=== PATIENT | female | born 1965 | race Caucasian/White ===

== ENCOUNTER 2019-06-22 15:59 | Emergency (ER) | payer OTHER ==
--- NOTE | 2019-06-22 16:43 | PDOC ---
Rapid Medical Evaluation Time Seen by Provider: 06/22/19 16:37 Medical Evaluation: Allergies Allergy/AdvReac Type Severity Reaction Status Date / Time No Known Allergies Allergy Verified 12/02/14 07:17 06/22/19 16:37 This patient had brief medical evaluation in triage cc: near syncope HPI: patient reports feeling lightheaded today while at work with dizziness. Denies chest discomfort or shortness of breath PE: appears well lungs clear bilaterally heart s1s2 Orders: ekg This patient will proceed to main ed for further evaluation Discharge Disposition - Diagnosis Near syncope - Referrals - Patient Instructions - Post Discharge Activity
[2019-06-22 16:44] VITALS: BP 141/82; PULSE 77; TEMP 97.2; BMI 34.2
--- NOTE | 2019-06-22 17:11 | PDOC ---
History of Present Illness - General Chief Complaint: Lightheaded Stated Complaint: DIZZY Time Seen by Provider: 06/22/19 16:37 History Source: Patient - History of Present Illness Initial Comments: Ms. Bryan is a 54 y/o woman w/hx HTN p/w syncopal episode three hours ago while at work. She reports being in her usual state of health when she became acutely lightheaded when turning around. She reports stumbling into a nearby chair and losing consciousness briefly. The event was witnessed by coworkers, and she awoke moments later to her normal mental status. She reports nausea while en route to [facility]. She denies prior similar episodes, and denies any prodromal palpitations, weakness, nausea, vomiting, chest pain, trouble breathing, or incontinence during the event. She feels well at this time. Past History - Past Medical History Allergies/Adverse Reactions: Allergies Allergy/AdvReac Type Severity Reaction Status Date / Time No Known Allergies Allergy Verified 06/22/19 16:39 Home Medications: Ambulatory Orders Lisinopril/Hydrochlorothiazide [Lisinopril-Hctz 20-25 mg Tab] 1 each PO BID 06/22/19 Meloxicam 15 mg PO HS PRN 06/22/19 Kidney Stones: Yes - Immunization History Immunization Up to Date: Yes - Psycho Social/Smoking Cessation Hx Smoking Status: No Smoking History: Never smoked Number of Cigarettes Smoked Daily: 0 Information on smoking cessation initiated: No Hx Alcohol Use: No Drug/Substance Use Hx: No Substance Use Type: None Review of Systems - Review of Systems Able to Perform ROS?: Yes Comments:: GENERAL/CONSTITUTIONAL: No fever or chills. No weakness. HEAD, EYES, EARS, NOSE AND THROAT: No change in vision. No ear pain or discharge. No sore throat. CARDIOVASCULAR: No chest pain or shortness of breath RESPIRATORY: No cough, wheezing, or hemoptysis. GASTROINTESTINAL: Nausea. No vomiting, diarrhea or constipation. GENITOURINARY: No dysuria, frequency, or change in urination. MUSCULOSKELETAL: No joint or muscle swelling or pain. No neck or back pain. SKIN: No rash NEUROLOGIC: LOC. No headache, vertigo, or change in strength/sensation. ENDOCRINE: No increased thirst. No abnormal weight change HEMATOLOGIC/LYMPHATIC: No anemia, easy bleeding, or history of blood clots. ALLERGIC/IMMUNOLOGIC: No hives or skin allergy. *Physical Exam - Vital Signs Last Vital Signs Temp Pulse Resp BP Pulse Ox 97.2 F L 77 17 141/82 97 06/22/19 16:37 06/22/19 16:37 06/22/19 16:37 06/22/19 16:37 06/22/19 16:37 - Physical Exam GENERAL: Awake, alert, and fully oriented, in no acute distress HEAD: No signs of trauma, normocephalic, atraumatic EYES: PERRLA, EOMI, sclera anicteric, conjunctiva clear ENT: Auricles normal inspection, hearing grossly normal, nares patent, oropharynx clear without exudates. Moist mucosa NECK: Normal ROM, supple, no lymphadenopathy, JVD, or masses LUNGS: No distress, speaks full sentences, clear to auscultation bilaterally HEART: Regular rate and rhythm, normal S1 and S2, no murmurs, rubs or gallops, peripheral pulses normal and equal bilaterally. ABDOMEN: Soft, nontender, normoactive bowel sounds. No guarding, no rebound. No masses EXTREMITIES : Normal inspection, Normal range of motion, no edema. No clubbing or cyanosis NEUROLOGICAL: Cranial nerves II through XII grossly intact. Normal speech, normal gait, no focal sensorimotor deficits SKIN: Warm, Dry, normal turgor, no rashes or lesions noted Heart Score/ECG Review - History History: Slightly suspicious - Electrocardiogram EKG: Normal - Age Age: 45-65 - Risk Factors Risk Factors Heart Score: Yes Hx Hypertension Based on the list above the patient has:: 1-2 risk factors - Troponin Troponin: </= normal limit - Score Heart Score - Total: 2 ED Treatment Course - LABORATORY CBC & Chemistry Diagram: 06/22/19 17:30 06/22/19 17:30 Medical Decision Making - Medical Decision Making 54F w/hx HTN p/w syncope while at work today, no residual symptoms at this time. Ddx includes hypoglycemia, vasovagal syncope, ACS. Plan: BGM CBC CMP Cardiac profile EKG CXR Dispo: Likely discharge, HEART Score: 2-3 pending troponin --- CBC - wnl CMP - wnl Troponin - negative On reassessment, she denies any symptoms at this time. She is able to ambulate easily unassisted without difficulty, lightheadedness, or vertigo. Plan for discharge with close PCP follow up. Discharge - Discharge Information Problems reviewed: Yes Clinical Impression/Diagnosis: Near syncope Condition: Good Disposition: HOME - Admission No - Follow up/Referral Referrals: Laura Yuen [Primary Care Provider] - - Patient Discharge Instructions Additional Instructions: You were evaluated today for your lightheadness. At this time you are safe for discharge home. Your labs, a chest x-ray, and EKG showed no concerning findings. Please follow-up with your primary care provider in the next three days. Take a copy of the labs we have given you to your appointment. Your care is not complete until you are evaluated by your primary care provider. Return to the Emergency Department for any new/worsening/concerning symptoms. - Post Discharge Activity Work/Back to School Note: Back to Work
--- NOTE | 2019-06-22 17:14 | PDOC ---
Attending Attestation - Resident Resident Name: Jony Perez - HPI HPI: 06/26/19 07:16 Pt presents to the ED complaining of lightheadness that began while at work. Denies syncope, chest pain or shortness of breath. Now feels well and reports no symptoms. - Physicial Exam PE: 06/26/19 07:23 Agree with resident exam. Patient is alert and oriented x 3 and in no acute distress. Lungs CTA b/l, CV rrr no m/r/g, abdomen soft, non tender,non distended, neuro alert and oriented x 3, CN grossly intact, ambulatory with normal gait - Medical Decision Making 06/26/19 07:24 Pt presents to the ED complaining of an episode of lightheadness that has now resolved. Initial differential included dehydration, less likely ACS. Labs, EKG and cardiac enzymes are within normal limits and patient feels improved. Will discharge home.
--- NOTE | 2019-06-22 17:24 | PDOC ---
*Physical Exam - Vital Signs Last Vital Signs Temp Pulse Resp BP Pulse Ox 97.2 F L 77 17 141/82 97 06/22/19 16:37 06/22/19 16:37 06/22/19 16:37 06/22/19 16:37 06/22/19 16:37 Heart Score/ECG Review - ECG Impressions Comment:: 06/22/19 19:52 HR 76, NSR, no RYAN/STD/TWI, good R wave progression V1-V6 ED Treatment Course - LABORATORY CBC & Chemistry Diagram: 06/22/19 17:30 06/22/19 17:30 Medical Decision Making - Medical Decision Making 06/22/19 17:21 Patient seen as pre-attending with Dr. Perez (PGY-1) and Dr. Jacobson (Attending) 54 y/o female with pre-syncopal episode at work. Reports feeling nauseous since this a[place] on the train. Increased PO water intake. 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 ASx now. H/o HTN - well controlled, no concerning family cardiac history Similar episode on month previous R/o ACS, also consider electrolyte derangement, arrthymia, anemia, vasovagal. 06/22/19 19:08 Troponin (-) CXR w/no appreciable infiltrate/consolidation no cardiomegaly K+ 5.3 - non hemolyzed however no EKG changes, will instruct to f/u with PMD for repeat labs and full evaluation later this week. EKG with no acute ischemic change as documented in EKG section of EMR Patient reassessed @ bedside Remains ASx D/c home with return precautions PMD follow-up for further evaluation. Discharge - Discharge Information Problems reviewed: Yes Clinical Impression/Diagnosis: Near syncope Condition: Good Disposition: HOME - Admission No - Follow up/Referral Referrals: Laura Yuen [Primary Care Provider] - - Patient Discharge Instructions Additional Instructions: You were evaluated today for your lightheadness. At this time you are safe for discharge home. Your labs, a chest x-ray, and EKG showed no concerning findings. Please follow-up with your primary care provider in the next three days. Take a copy of the labs we have given you to your appointment. Your care is not complete until you are evaluated by your primary care provider. Return to the Emergency Department for any new/worsening/concerning symptoms. - Post Discharge Activity Work/Back to School Note: Back to Work
[2019-06-22 17:58] LABS: EOS % 2.6 % (0-4.5); HEMATOCRIT 35.4 % (32.4-45.2); HEMOGLOBIN 11.9 GM/dL (10.7-15.3); LYMPH % 33.1 % (8-40); MCH 28.8 pg (25.7-33.7); MCHC 33.6 g/dl (32.0-36.0); MEAN CELL VOLUME 85.7 fl (80-96); MEAN PLT VOLUME 9.6 fl (7.5-11.1); MONO % 11.6 % (3.8-10.2); NEUT % 51.7 % (42.8-82.8); PLATELET COUNT 320 K/MM3 (134-434); RBC 4.13 M/mm3 (3.60-5.2); RDW 14.6 % (11.6-15.6)
[2019-06-22 18:52] LABS: ALBUMIN 3.5 g/dl (3.4-5.0); ALK PHOS 87 U/L (45-117); ANION GAP 6 MMOL/L (8-16); BILIRUBIN,TOTAL 0.3 mg/dL (0.2-1); BLOOD UREA NITROGEN 16.3 mg/dL (7-18); CALCIUM 8.7 mg/dL (8.5-10.1); CHLORIDE 106 mmol/L (98-107); CO2 26 mmol/L (21-32); CREATININE 0.8 mg/dL (0.55-1.3); GLUCOSE,RANDOM 104 mg/dL (74-106); POTASSIUM 5.3 mmol/L (3.5-5.1); SGOT/AST 58 U/L (15-37); SGPT/ALT 40 U/L (13-61); SODIUM 137 mmol/L (136-145)
--- NOTE | 2019-06-23 10:34 | EKG ---
Test Reason : Blood Pressure : / mmHG Vent. Rate : 076 BPM Atrial Rate : 076 BPM P-R Int : 180 ms QRS Dur : 092 ms QT Int : 420 ms P-R-T Axes : 053 019 033 degrees QTc Int : 472 ms NORMAL SINUS RHYTHM NORMAL ECG WHEN COMPARED WITH ECG OF 02-DEC-2014 08:18, NO SIGNIFICANT CHANGE WAS FOUND Confirmed by Asif Langley MD ([id number]) on 06/23/2019 10:34:09 AM Referred By: Confirmed By:Asif Langley MD
== END 2019-06-22 19:20 | disposition home or self-care (01) ==
LOC: JER 15:59
DX: R55 Syncope and collapse (principal); I10 Essential (primary) hypertension
CPT/HCPCS: 36415; 71045-TC-FY; 80053; 82550; 82553; 84484; 85025; 93005; 93010; 99284-25

== ENCOUNTER 2023-01-03 22:25 | Emergency (ER) | payer BC, OTHER ==
[2023-01-03 22:28] VITALS: BP 120/70; PULSE 89; RESP 18; TEMP 98.4; BMI 34.5
[2023-01-03 23:01] LABS: EPI CELLS 9 /uL (0-25.1); HYALINE CASTS 0 /uL (0-3.1); PH,URINE 5.5 (5.0-8.0); URINE APPEARANCE CLOUDY; URINE BILIRUBIN 1+ (NEGATIVE); URINE COLOR RED; URINE GLUCOSE (UA) NEGATIVE (NEGATIVE); URINE KETONE NEGATIVE (NEGATIVE); URINE LEUK ESTERASE 3+ (NEGATIVE); URINE NITRITE POSITIVE (NEGATIVE); URINE PROTEIN 3+ (NEGATIVE); URINE UROBILINOGEN 0.2 mg/dL (0.2-1.0); URINE WBC 2317 /uL (0-25.8)
[2023-01-03] MEDS ORDERED: CEPHALEXIN MONOHYDRATE 500 MG CAPSULE (UD) PO ONE (23:18)
[2023-01-03] MEDS ORDERED: CEPHALEXIN MONOHYDRATE 500 MG CAPSULE (UD) ONE (23:23)
[2023-01-04 01:15] LABS: URINE RBC 25147.6 /uL (0-23.9)
[2023-01-04 01:16] LABS: YEAST NONE SEEN (NEGATIVE)
== END 2023-01-03 23:29 | disposition home or self-care (01) ==
LOC: JER 22:25
DX: R30.0 Dysuria (principal); R35.0 Frequency of micturition; R31.0 Gross hematuria; R10.30 Lower abdominal pain, unspecified; N39.0 Urinary tract infection, site not specified
CPT/HCPCS: 81003; 87086; 87186; 99283-25